=== PATIENT | male | born 1985 | race Caucasian/White ===

== ENCOUNTER → 2019-09-15 | Outpatient (REF) | payer OTHER | LOC: M SMT 14:03 | PROVIDERS: ATTEND Urology | DX: Z30.2 Encounter for sterilization (principal) ==

== ENCOUNTER → 2019-11-17 | Outpatient (REF) | payer OTHER ==
[2019-11-17 13:41] LABS: SEMEN APPEARANCE OPAQUE (OPAQUE); SEMEN VISCOSITY LIQUID (LIQUID); SEMEN VOLUME 2.8 ml (2.0-5.0); WBC CONCENTRATION <=1 M/ml (<=1 M/ml)
== END ==
LOC: M SMT 13:10
PROVIDERS: ATTEND Urology
DX: Z98.52 Vasectomy status (principal)

== ENCOUNTER 2024-06-26 08:08 | Emergency (ER) | payer OTHER ==
[~2024-06-26] VITALS: Ht 172.7 cm; Wt 82.6 kg
[2024-06-26] MEDS ORDERED: AZIT-12 PO (11:06)
[2024-06-26 11:11] VITALS: BP 121/78; TEMP 100.3; O2SAT 94
[2024-06-26] MEDS: IBUPROFEN 600MG TAB PO ONE (11:12)
== END 2024-06-26 11:17 | disposition home or self-care (01) ==
LOC: M ED 08:08
DX: J15.7 Pneumonia due to Mycoplasma pneumoniae (principal); F17.200 Nicotine dependence, unspecified, uncomplicated; Z79.2 Long term (current) use of antibiotics